=== PATIENT | male | born 1990 | race Caucasian/White ===

== ENCOUNTER → 2022-03-02 08:10 | Outpatient (CLI) | payer MEDICAID, SELFPAY | PROVIDERS: PCP Family Medicine; Visit Provider Family Medicine | DX: E78.5 Hyperlipidemia, unspecified (principal) ==

== ENCOUNTER → 2022-03-02 21:11 | Outpatient (CLI) | payer MEDICAID, SELFPAY ==
[2022-03-02 21:43] LABS: Basophils # 0.1 K/mm3 (0-0.2); Basophils % 1.4 % (0.1-2.0); Eosinophils # 0.1 K/mm3 (0.0-0.4); Eosinophils % 1.2 % (0.1-12.0); Hematocrit 46.4 % (42.0-52.0); Hemoglobin 15.1 g/dL (14.1-18.0); Lymphocytes # 1.8 K/mm3 (0.7-4.5); Lymphocytes % 25.5 % (10-50); Mean Corpuscular HGB Conc 32.5 g/dL (31.8-35.4); Mean Corpuscular Hemoglobin 31.1 pg (27.0-31.2); Mean Corpuscular Volume 95.6 fl (80-94); Mean Platelet Volume 10.5 fl (7.4-10.4); Monocytes # 0.5 K/mm3 (0.1-1.0); Monocytes % 7.2 % (1.7-9.3); Neutrophils # 4.5 K/mm3 (1.8-7.8); Neutrophils % 64.6 % (37.0-80.0); Platelet Count 290 K/mm3 (142-424); Red Blood Count 4.85 M/mm3 (4.60-6.20); Red Cell Distribution Width 13.4 % (11.5-17.5)
[2022-03-02 21:48] LABS: Alanine Aminotransferase 26 U/L (12-78); Albumin Level 4.3 g/dl (3.5-5.0); Albumin/Globulin Ratio 1.5 (1.1-1.8); Alkaline Phosphatase 141 U/L (38-126); Anion Gap 15.6 mEq/L (5-15); Aspartate Amino Transferase 37 U/L (17-59); Bilirubin,Total 0.4 mg/dl (0.2-1.3); Blood Urea Nitrogen 13 mg/dl (9-20); Calcium 9.4 mg/dl (8.4-10.2); Carbon Dioxide 26 mmol/L (22.0-30.0); Chloride 102 mmol/L (98-107); Chol/HDL Ratio 4.9 (1-3.5); Cholesterol 170 mg/dl (140-200); Estimated Glomerular Filt Rate 158 ml/min (>60); GFR (African American) 191 ML/MIN (>60); Globulin 2.8 g/dL (1.3-3.2); Glucose 82 mg/dl (74-100); HDL Cholesterol 35 mg/dl (40-60); Potassium 4.6 mmoL/L (3.5-5.1); Sodium 139 mmol/L (136-145); Total Protein,Serum 7.1 g/dl (6.3-8.2); Triglycerides 197 mg/dl (30-150); VLDL Cholesterol 39 mg/dL (0-40)
[2022-03-02 22:33] LABS: Hemoglobin A1C 5.3 % (4.0-6.0)
== END ==
PROVIDERS: PCP Family Medicine; Visit Provider Family Medicine
DX: I10 Essential (primary) hypertension (principal); E78.5 Hyperlipidemia, unspecified; G04.90 Encephalitis and encephalomyelitis, unspecified
CPT/HCPCS: 80053; 80061; 83036; 84443; 85025

== ENCOUNTER → 2022-05-12 11:50 | Outpatient (CLI) | payer MEDICAID, SELFPAY | PROVIDERS: PCP Nurse Practitioner Family; Visit Provider Nurse Practitioner Family | DX: U07.1 COVID-19 (principal) | CPT/HCPCS: C9803; U0003; U0005 ==

== ENCOUNTER → 2023-04-26 23:00 | Outpatient (CLI) | payer MEDICAID, SELFPAY ==
[2023-04-26 18:05] LABS: Basophils % 0.7 % (0.1-2.0); Eosinophils # 0.1 K/mm3 (0.0-0.4); Eosinophils % 1.1 % (0.1-12.0); Hematocrit 47.6 % (42.0-52.0); Hemoglobin 15.9 g/dL (14.1-18.0); Lymphocytes # 1.7 K/mm3 (0.7-4.5); Lymphocytes % 27.4 % (10-50); Mean Corpuscular HGB Conc 33.5 g/dL (31.8-35.4); Mean Corpuscular Hemoglobin 31.1 pg (27.0-31.2); Mean Platelet Volume 9.8 fl (7.4-10.4); Monocytes # 0.4 K/mm3 (0.1-1.0); Monocytes % 6.2 % (1.7-9.3); Neutrophils # 4.1 K/mm3 (1.8-7.8); Neutrophils % 64.6 % (37.0-80.0); Platelet Count 261 K/mm3 (142-424); Red Blood Count 5.12 M/mm3 (4.60-6.20); Red Cell Distribution Width 13.5 % (11.5-17.5); White Blood Count 6.3 K/mm3 (4.8-10.8)
[2023-04-26 18:42] LABS: Alanine Aminotransferase 38 U/L (12-78); Albumin/Globulin Ratio 1.6 (1.1-1.8); Alkaline Phosphatase 122 U/L (38-126); Aspartate Amino Transferase 39 U/L (17-59); Bilirubin,Total 0.5 mg/dl (0.2-1.3); Blood Urea Nitrogen 11 mg/dl (9-20); Calcium 9.5 mg/dl (8.4-10.2); Carbamazepine (Tegretol) 9.5 ug/ml (4.0-12.0); Carbon Dioxide 26 mmol/L (22.0-30.0); Chloride 100 mmol/L (98-107); Cholesterol 201 mg/dl (140-200); Estimated Glomerular Filt Rate 157 ml/min (>60); GFR (African American) 190 ML/MIN (>60); Glucose 84 mg/dl (74-100); Triglycerides 281 mg/dl (30-150); VLDL Cholesterol 56 mg/dL (0-40)
[2023-04-26 19:11] LABS: Thyroid Stimulating Hormone 1.25 uIU/mL (0.465-4.68)
[2023-04-26 19:28] LABS: Albumin Level 4.8 g/dl (3.5-5.0); Anion Gap 13.2 mEq/L (5-15); Potassium 4.2 mmoL/L (3.5-5.1); Sodium 135 mmol/L (136-145); Total Protein,Serum 7.8 g/dl (6.3-8.2)
[2023-04-26 19:29] LABS: HDL Cholesterol 40 mg/dl (40-60)
== END ==
PROVIDERS: PCP Family Medicine; Visit Provider Family Medicine
DX: I10 Essential (primary) hypertension (principal); E78.5 Hyperlipidemia, unspecified; Z79.899 Other long term (current) drug therapy
CPT/HCPCS: 80053; 80061; 80156; 84443; 85025

== ENCOUNTER 2023-08-03 19:08 | Outpatient (CLI) | payer MEDICAID, SELFPAY ==
[2023-08-03 16:43] LABS: Alanine Aminotransferase 35 U/L (12-78); Albumin Level 4.5 g/dl (3.5-5.0); Albumin/Globulin Ratio 1.7 (1.1-1.8); Alkaline Phosphatase 122 U/L (38-126); Anion Gap 14.6 mEq/L (5-15); Aspartate Amino Transferase 33 U/L (17-59); Bilirubin,Total 0.4 mg/dl (0.2-1.3); Blood Urea Nitrogen 12 mg/dl (9-20); Calcium 9.7 mg/dl (8.4-10.2); Carbon Dioxide 27 mmol/L (22.0-30.0); Chloride 103 mmol/L (98-107); Chol/HDL Ratio 4.9 (1-3.5); Cholesterol 172 mg/dl (140-200); Estimated Glomerular Filt Rate 132 ml/min (>60); GFR (African American) 159 ML/MIN (>60); Globulin 2.6 g/dL (1.3-3.2); Glucose 86 mg/dl (74-100); HDL Cholesterol 35 mg/dl (40-60); Potassium 4.6 mmoL/L (3.5-5.1); Sodium 140 mmol/L (136-145); Total Protein,Serum 7.1 g/dl (6.3-8.2); Triglycerides 213 mg/dl (30-150); VLDL Cholesterol 43 mg/dL (0-40)
[2023-08-03 16:53] LABS: Direct LDL Cholesterol 101.43 mg/dL (100-129)
== END 2023-08-03 23:59 ==
LOC: LAB.DROPOF 19:08
PROVIDERS: PCP Family Medicine; Visit Provider Family Medicine
DX: E78.5 Hyperlipidemia, unspecified (principal); I10 Essential (primary) hypertension
CPT/HCPCS: 80053; 80061

== ENCOUNTER 2023-11-03 10:52 | Outpatient (CLI) | payer MEDICAID, SELFPAY ==
[2023-11-03 19:31] LABS: Alanine Aminotransferase 32 U/L (12-78); Albumin Level 4.4 g/dl (3.5-5.0); Albumin/Globulin Ratio 1.6 (1.1-1.8); Alkaline Phosphatase 141 U/L (38-126); Anion Gap 14.2 mEq/L (5-15); Aspartate Amino Transferase 33 U/L (17-59); Bilirubin,Total 0.5 mg/dl (0.2-1.3); Blood Urea Nitrogen 13 mg/dl (9-20); Calcium 9.8 mg/dl (8.4-10.2); Carbon Dioxide 29 mmol/L (22.0-30.0); Chloride 100 mmol/L (98-107); Cholesterol 146 mg/dl (140-200); Estimated Glomerular Filt Rate 132 ml/min (>60); GFR (African American) 159 ML/MIN (>60); Globulin 2.8 g/dL (1.3-3.2); Glucose 90 mg/dl (74-100); HDL Cholesterol 29 mg/dl (40-60); Potassium 4.2 mmoL/L (3.5-5.1); Sodium 139 mmol/L (136-145); Total Protein,Serum 7.2 g/dl (6.3-8.2); Triglycerides 208 mg/dl (30-150); VLDL Cholesterol 42 mg/dL (0-40)
[2023-11-03 19:42] LABS: Direct LDL Cholesterol 85.45 mg/dL (100-129)
== END 2023-11-03 23:59 | disposition home or self-care (01) ==
LOC: LAB.DROPOF 11-04 10:52
PROVIDERS: PCP Family Medicine; Visit Provider Family Medicine
DX: E78.5 Hyperlipidemia, unspecified (principal)
CPT/HCPCS: 80053; 80061

== ENCOUNTER 2024-01-31 12:27 | Outpatient (CLI) | payer MEDICAID, SELFPAY ==
[2024-01-31 17:06] LABS: Basophils # 0.1 K/mm3 (0-0.2); Eosinophils # 0.1 K/mm3 (0.0-0.4); Eosinophils % 0.8 % (0.1-12.0); Hemoglobin 14.8 g/dL (14.1-18.0); Lymphocytes # 1.7 K/mm3 (0.7-4.5); Lymphocytes % 24.2 % (10-50); Mean Corpuscular HGB Conc 31.5 g/dL (31.8-35.4); Mean Corpuscular Hemoglobin 30.5 pg (27.0-31.2); Mean Corpuscular Volume 96.8 fl (80-94); Mean Platelet Volume 10.2 fl (7.4-10.4); Monocytes # 0.4 K/mm3 (0.1-1.0); Monocytes % 5.1 % (1.7-9.3); Neutrophils # 4.8 K/mm3 (1.8-7.8); Neutrophils % 68.9 % (37.0-80.0); Platelet Count 332 K/mm3 (142-424); Red Blood Count 4.86 M/mm3 (4.60-6.20); Red Cell Distribution Width 13.7 % (11.5-17.5); White Blood Count 6.9 K/mm3 (4.8-10.8)
[2024-01-31 17:58] LABS: Alanine Aminotransferase 30 U/L (12-78); Albumin/Globulin Ratio 1.3 (1.1-1.8); Alkaline Phosphatase 137 U/L (38-126); Anion Gap 10.6 mEq/L (5-15); Aspartate Amino Transferase 25 U/L (17-59); Bilirubin,Total 0.4 mg/dl (0.2-1.3); Blood Urea Nitrogen 11 mg/dl (9-20); Calcium 9.3 mg/dl (8.4-10.2); Carbon Dioxide 26 mmol/L (22.0-30.0); Chloride 107 mmol/L (98-107); Chol/HDL Ratio 4.3 (1-3.5); Cholesterol 128 mg/dl (140-200); Estimated Glomerular Filt Rate 156 ml/min (>60); GFR (African American) 189 ML/MIN (>60); Glucose 77 mg/dl (74-100); HDL Cholesterol 30 mg/dl (40-60); Potassium 4.6 mmoL/L (3.5-5.1); Sodium 139 mmol/L (136-145); Triglycerides 231 mg/dl (30-150); VLDL Cholesterol 46 mg/dL (0-40)
[2024-01-31 18:08] LABS: Direct LDL Cholesterol 69.28 mg/dL (100-129)
[2024-01-31 18:28] LABS: Thyroid Stimulating Hormone 1.48 uIU/mL (0.465-4.68)
== END 2024-01-31 23:59 | disposition home or self-care (01) ==
LOC: LAB.DROPOF 02-01 12:27
PROVIDERS: PCP Family Medicine; Visit Provider Family Medicine
DX: E78.5 Hyperlipidemia, unspecified (principal); I10 Essential (primary) hypertension
CPT/HCPCS: 80050; 80053; 80061; 84443; 85025

== ENCOUNTER 2024-07-31 10:30 | Outpatient (CLI) | payer MEDICAID, SELFPAY ==
[2024-07-31 17:36] LABS: Albumin Level 4.9 g/dl (3.5-5.0); Chloride 101 mmol/L (98-107); Potassium 4.3 mmoL/L (3.5-5.1); Sodium 138 mmol/L (136-145)
[2024-07-31 17:38] LABS: Blood Urea Nitrogen 12 mg/dl (9-20); Estimated Glomerular Filt Rate 131 ml/min (>60); GFR (African American) 158 ML/MIN (>60)
[2024-07-31 17:39] LABS: Alanine Aminotransferase 34 U/L (12-78); Albumin/Globulin Ratio 2.1 (1.1-1.8); Alkaline Phosphatase 131 U/L (38-126); Anion Gap 15.3 mEq/L (5-15); Aspartate Amino Transferase 35 U/L (17-59); Bilirubin,Total 0.4 mg/dl (0.2-1.3); Calcium 9.4 mg/dl (8.4-10.2); Carbon Dioxide 26 mmol/L (22.0-30.0); Chol/HDL Ratio 4.1 (1-3.5); Cholesterol 134 mg/dl (140-200); Globulin 2.3 g/dL (1.3-3.2); Glucose 53 mg/dl (74-100); HDL Cholesterol 33 mg/dl (40-60); Total Protein,Serum 7.2 g/dl (6.3-8.2); Triglycerides 194 mg/dl (30-150); VLDL Cholesterol 39 mg/dL (0-40)
[2024-07-31 17:50] LABS: Direct LDL Cholesterol 70.79 mg/dL (100-129)
[2024-07-31 18:21] LABS: HIV Combo NEGATIVE (Negative)
[2024-07-31 18:26] LABS: Hepatitis C Ab Qual. W/ RFX NEGATIVE (Negative)
== END 2024-07-31 23:59 | disposition home or self-care (01) ==
LOC: LAB.DROPOF 08-01 09:42
PROVIDERS: PCP Family Medicine; Visit Provider Family Medicine
DX: E78.5 Hyperlipidemia, unspecified (principal); Z11.4 Encounter for screening for human immunodeficiency virus [HIV]; Z11.59 Encounter for screening for other viral diseases
CPT/HCPCS: 80053; 80061; 86803; 87389

== ENCOUNTER 2025-01-30 09:35 | Outpatient (CLI) | payer MEDICAID, SELFPAY ==
[2025-01-30 19:39] LABS: Hematocrit 45.6 % (42.0-52.0); Hemoglobin 15.1 g/dL (14.1-18.0); Immature Granulocytes % 0.6 %; Mean Corpuscular HGB Conc 33.1 g/dL (31.8-35.4); Mean Corpuscular Hemoglobin 30.1 pg (27.0-31.2); Mean Corpuscular Volume 91.0 fl (80-94); Nucleated Red Blood Cells % 0 %; Platelet Count 291 K/mm3 (142-424); Red Blood Count 5.01 M/mm3 (4.60-6.20); Red Cell Distribution Width-SD 42.0 fL; White Blood Count 7.9 K/mm3 (4.8-10.8)
[2025-01-30 19:58] LABS: Hemoglobin A1C 5.8 % (4.0-6.0)
[2025-01-30 20:04] LABS: Albumin Level 4.8 g/dl (3.5-5.0); Chloride 98 mmol/L (98-107); Potassium 4.9 mmoL/L (3.5-5.1); Sodium 136 mmol/L (136-145)
[2025-01-30 20:06] LABS: Alanine Aminotransferase 27 U/L (12-78); Aspartate Amino Transferase 31 U/L (17-59); Blood Urea Nitrogen 13 mg/dl (9-20); Creatinine,Serum 0.60 mg/dl (0.66-1.25); Estimated Glomerular Filt Rate 155 ml/min (>60); GFR (African American) 188 ML/MIN (>60)
[2025-01-30 20:07] LABS: Anion Gap 19.9 mEq/L (5-15); Carbon Dioxide 23 mmol/L (22.0-30.0)
[2025-01-30 20:38] LABS: Thyroid Stimulating Hormone 1.36 uIU/mL (0.465-4.68)
[2025-01-30 21:16] LABS: Albumin/Globulin Ratio 1.8 (1.1-1.8); Alkaline Phosphatase 125 U/L (38-126); Bilirubin,Total 0.4 mg/dl (0.2-1.3); Calcium 10.0 mg/dl (8.4-10.2); Cholesterol 164 mg/dl (140-200); Globulin 2.6 g/dL (1.3-3.2); Glucose 59 mg/dl (74-100); HDL Cholesterol 38 mg/dl (40-60); Total Protein,Serum 7.4 g/dl (6.3-8.2); Triglycerides 256 mg/dl (30-150)
--- OUTSIDE RECORDS SUMMARY | 2025-01-31 09:52 | XMS_ITS | Clinical Summary ---
Author Organization Healthcare Address [address] [place] [address] Care Team Providers Care Criminalist Technician Name Role Phone Manuelito Oswald MD Primary Care Provider [phone] Family History Medical History Relation Name Comments Conversions - Other Father Family h istory unknown Conversions - Other Mother Family h istory unknown Relation Name Status Comments Father Mother Social History Tobacco Use Types Packs/Day Years Used Date Smoking Tobacco: Never Alcohol Use Standard Drinks/Week Comments No 0 (1 standard drink = 0.6 oz pur e alcohol) Sex and Gender Information Value Date Recorded Sex Assigned at Not on file Legal Sex Male 7:58 PM EDT Gender Identity Not on file Sexual Orientation Not on file Last Filed Vital Signs Vital Sign Reading Time Taken Comments Blood Pressure - - Pulse - - Temperature - - Respiratory Rate - - Oxygen Saturation - - Inhaled Oxygen Concentration - - Weight 120 kg (264 lb) 11/15/2015 8:58 AM EDT Height 182.9 cm (6') 11/15/2015 8:58 AM EDT Body Mass Index 35.8 11/15/2015 8:58 AM EDT Plan of Treatment Not on file Care Teams Criminalist Technician Relationship Specialty Start Date End Date Manuelito Oswald MD [address] [place] [id number] PCP - General 10/04/20
== END 2025-01-30 23:59 ==
LOC: LAB.DROPOF 01-31 09:47
PROVIDERS: PCP Family Medicine; Visit Provider Family Medicine
DX: E78.5 Hyperlipidemia, unspecified (principal); I10 Essential (primary) hypertension; E34.9 Endocrine disorder, unspecified
CPT/HCPCS: 80053; 80061; 83036; 84443; 85025